=== PATIENT | male | born 1995 | race Caucasian/White ===

== ENCOUNTER 2017-10-24 09:46 | Emergency (ER) | payer OTHER, BC ==
[~2017-10-24] VITALS: Wt 90.7 kg
[~2017-10-24 09:46] MED LIST: AMOXICILLIN500 MG PO; CLARITIN10 MG PO; CLOTRIM ANTIFUNGAL1% TP; DOXYCYCLINE100 M3 PO; MOTRIN600 MG PO; MOTRIN800 MG PO; NKHM; PREDNISONE20 M1 PO; ROBITUSSIN DM120 ML PO; SINGULAIR10 MG PO; SUDAFED30 MG PO; TESSALON PERLE100 M1 PO; ZITHROMAX Z PA250 MG PO; ZITHROMAX250 MG PO
[2017-10-24 10:23] LABS: BASO % 0.4 % (0.0-1.0); EOS # 0.1 10*3/uL (0.0-0.4); EOS % 1.8 % (1.0-4.0); HEMATOCRIT 43.7 % (42.0-52.0); LYMPH # 2.6 10*3/uL (1.3-4.4); LYMPH % 34.5 % (27.0-41.0); MEAN CELL VOLUME 89.5 fl (80.0-94.0); MEAN CORPUSCULAR HGB 30.7 pg (27.0-31.0); MEAN CORPUSCULAR HGB CONC 34.3 g/dl (33.0-37.0); MEAN PLATELET VOLUME 10.7 fl (9.6-12.3); MONO # 0.4 10*3/uL (0.1-1.0); MONO % 5.8 % (3.0-9.0); NEUT # 4.3 10*3/uL (2.3-7.9); NEUT % 57.1 % (47.0-73.0); PLATELET COUNT AUTOMATED 238 10*3/uL (130-400); RED BLOOD COUNT 4.88 10*6/uL (4.50-5.90); RED CELL DISTRI WIDTH 12.3 % (0-14.5); WHITE BLOOD COUNT 7.6 10*3/uL (4.8-10.8)
[2017-10-24 10:44] LABS: BILIRUBIN NEGATIVE (NEGATIVE); BLOOD NEGATIVE (NEGATIVE); CLARITY SL CLOUDY (CLEAR); COLOR YELLOW (YELLOW); GLUCOSE NEGATIVE (NEGATIVE); KETONE NEGATIVE (NEGATIVE); LEUKO ESTERASE NEGATIVE (NEGATIVE); NITRITE NEGATIVE (NEGATIVE); PH 7.5 (5.0-9.0); SPECIFIC GRAVITY 1.015 (1.005-1.030); UROBILINOGEN 0.2 E.U./dl (0.2-1.0)
[2017-10-24 10:46] LABS: ALBUMIN 4.2 gm/dl (3.1-4.5); ALKALINE PHOSPHATASE 89 U/L (45-117); BUN 16 mg/dl (7-24); CHLORIDE 105 mmol/L (98-107); CREATININE 0.93 mg/dL (0.70-1.30); LIPASE 70 U/L (73-393); POTASSIUM 4.5 mmol/L (3.5-5.1); SGOT/AST 25 IU/L (3-35); SGPT/ALT 39 U/L (12-78); SODIUM 139 mmol/L (136-145); TOTAL PROTEIN 7.7 gm/dL (6.4-8.2)
[2017-10-24 11:21] LABS: BACTERIA 3+; EPITHELIAL CELLS 0-2; WBC 0-2 wbc/hpf (0-5)
[2017-10-24] MEDS ORDERED: ZOFRAN ODT4 MG SL (12:53)
[2017-10-24] MEDS ORDERED: MIRALAX POWDER17 G1 PO (12:53)
== END 2017-10-24 13:11 | disposition home or self-care (01) ==
LOC: ED 09:46
PROVIDERS: Nurse Practitioner Family
DX: K59.00 Constipation, unspecified (principal); R11.0 Nausea; Z79.899 Other long term (current) drug therapy; Z88.1 Allergy status to other antibiotic agents

== ENCOUNTER 2018-07-21 11:26 | Emergency (ER) | payer BC, OTHER ==
[~2018-07-21] VITALS: Ht 177.8 cm; Wt 88.5 kg
[~2018-07-21 11:26] MED LIST changes: +MIRALAX POWDER17 G1 PO; +ZOFRAN ODT4 MG SL
[2018-07-21] MEDS ORDERED: FLONASE ALLERG9.9 ML NAS (11:43)
[2018-07-21] MEDS ORDERED: PREDNISONE10 MG PO (11:43)
== END 2018-07-21 12:50 | disposition home or self-care (01) ==
LOC: ED 11:26
DX: B34.9 Viral infection, unspecified (principal); R03.0 Elevated blood-pressure reading, without diagnosis of hypertension; Z88.8 Allergy status to other drugs, medicaments and biological substances; Z79.899 Other long term (current) drug therapy

== ENCOUNTER 2018-08-26 16:19 | Emergency (ER) | payer BC, OTHER ==
[~2018-08-26] VITALS: Ht 177.8 cm; Wt 95.3 kg
[~2018-08-26 16:19] MED LIST changes: +FLONASE ALLERG9.9 ML NAS; +PREDNISONE10 MG PO
== END 2018-08-26 17:21 | disposition home or self-care (01) ==
LOC: ED 16:19
DX: J06.9 Acute upper respiratory infection, unspecified (principal); H61.22 Impacted cerumen, left ear; R11.10 Vomiting, unspecified; Z88.1 Allergy status to other antibiotic agents; Z88.8 Allergy status to other drugs, medicaments and biological substances; Z79.899 Other long term (current) drug therapy

== ENCOUNTER 2018-10-20 11:12 | Emergency (ER) | payer BC, OTHER ==
[~2018-10-20] VITALS: Ht 180.3 cm; Wt 86.2 kg
--- NOTE | ~2018-10-20 | EKG ---
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
[2018-10-20 12:03] LABS: BASO % 0.7 % (0.0-1.0); EOS # 0.3 10*3/uL (0.0-0.4); EOS % 5.4 % (1.0-4.0); HEMATOCRIT 43.8 % (42.0-52.0); LYMPH # 2.3 10*3/uL (1.3-4.4); LYMPH % 37.8 % (27.0-41.0); MEAN CORPUSCULAR HGB 31.5 pg (27.0-31.0); MEAN CORPUSCULAR HGB CONC 34.2 g/dl (33.0-37.0); MEAN PLATELET VOLUME 10.9 fl (9.6-12.3); MONO # 0.5 10*3/uL (0.1-1.0); MONO % 7.3 % (3.0-9.0); NEUT % 48.5 % (47.0-73.0); PLATELET COUNT AUTOMATED 238 10*3/uL (130-400); RED BLOOD COUNT 4.76 10*6/uL (4.50-5.90); RED CELL DISTRI WIDTH 12.2 % (0-14.5); WHITE BLOOD COUNT 6.1 10*3/uL (4.8-10.8)
[2018-10-20 12:20] LABS: ALBUMIN 3.8 gm/dl (3.1-4.5); ALKALINE PHOSPHATASE 79 U/L (45-117); BUN 17 mg/dl (7-24); CHLORIDE 108 mmol/L (98-107); CREATININE 0.96 mg/dL (0.70-1.30); POTASSIUM 4.1 mmol/L (3.5-5.1); SGOT/AST 21 IU/L (3-35); SGPT/ALT 39 U/L (12-78); SODIUM 141 mmol/L (136-145); TOTAL PROTEIN 7.3 gm/dL (6.4-8.2)
== END 2018-10-20 12:26 | disposition home or self-care (01) ==
LOC: ED 11:12
PROVIDERS: Emergency Medicine
DX: R55 Syncope and collapse (principal); Z88.1 Allergy status to other antibiotic agents; Z88.8 Allergy status to other drugs, medicaments and biological substances

== ENCOUNTER 2019-04-29 16:22 | Emergency (ER) | payer BC, OTHER ==
[~2019-04-29] VITALS: Ht 180.3 cm; Wt 90.7 kg
== END 2019-04-29 17:49 | disposition home or self-care (01) ==
LOC: ED 16:22
DX: S80.01XA Contusion of right knee, initial encounter (principal); Z88.1 Allergy status to other antibiotic agents; Z88.8 Allergy status to other drugs, medicaments and biological substances; W18.40XA Slipping, tripping and stumbling without falling, unspecified, initial encounter; Y93.89 Activity, other specified; Y92.89 Other specified places as the place of occurrence of the external cause; Y99.8 Other external cause status

== ENCOUNTER 2019-06-21 10:53 | Emergency (ER) | payer BC, OTHER ==
[~2019-06-21] VITALS: Ht 180.3 cm; Wt 90.7 kg
[2019-06-21] MEDS ORDERED: OMNICEF300 MG PO ×2 (12:21→12:46)
== END 2019-06-21 12:36 | disposition home or self-care (01) ==
LOC: ED 10:53
DX: J02.9 Acute pharyngitis, unspecified (principal); Z88.8 Allergy status to other drugs, medicaments and biological substances; Z88.1 Allergy status to other antibiotic agents

== ENCOUNTER 2020-01-11 18:35 | Emergency (ER) | payer BC, OTHER ==
[~2020-01-11] VITALS: Ht 180.3 cm; Wt 90.7 kg
[~2020-01-11 18:35] MED LIST changes: +OMNICEF300 MG PO
[2020-01-12] MEDS ORDERED: CEPHALEXIN500 M1 PO (19:00)
== END 2020-01-11 20:25 | disposition home or self-care (01) ==
LOC: ED 18:35
DX: S61.206A Unspecified open wound of right little finger without damage to nail, initial encounter (principal); Z88.8 Allergy status to other drugs, medicaments and biological substances; X58.XXXA Exposure to other specified factors, initial encounter; Y93.89 Activity, other specified; Y92.89 Other specified places as the place of occurrence of the external cause; Y99.8 Other external cause status

== ENCOUNTER 2020-02-16 19:45 | Emergency (ER) | payer BC, OTHER ==
[~2020-02-16] VITALS: Wt 90.7 kg
[~2020-02-16 19:45] MED LIST changes: +CEPHALEXIN500 M1 PO
[2020-02-17] MEDS ORDERED: IBUPROFEN600 MG PO (12:30)
== END 2020-02-16 23:14 | disposition home or self-care (01) ==
LOC: ED 19:45
DX: S76.012A Strain of muscle, fascia and tendon of left hip, initial encounter (principal); Z88.8 Allergy status to other drugs, medicaments and biological substances; X58.XXXA Exposure to other specified factors, initial encounter; Y93.89 Activity, other specified; Y92.89 Other specified places as the place of occurrence of the external cause; Y99.8 Other external cause status

== ENCOUNTER → 2020-05-26 | Outpatient (CLI) | payer BC, OTHER ==
[~2020-05-26] MED LIST changes: +IBUPROFEN600 MG PO
== END | disposition home or self-care (01) ==
LOC: COVID19 12:19
PROVIDERS: ATTEND Family Medicine
DX: U07.1 COVID-19 (principal)

== ENCOUNTER → 2021-04-28 | Outpatient (CLI) | payer BC, OTHER ==
[2021-04-28 15:13] LABS: HEMATOCRIT 41.3 % (42.0-52.0); MEAN CELL VOLUME 89.4 fl (80.0-94.0); MEAN CORPUSCULAR HGB CONC 34.6 g/dl (33.0-37.0); MEAN PLATELET VOLUME 10.5 fl (9.6-12.3); RED BLOOD COUNT 4.62 10*6/uL (4.50-5.90); RED CELL DISTRI WIDTH 11.7 % (0-14.5); WHITE BLOOD COUNT 6.7 10*3/uL (4.8-10.8)
[2021-04-28 15:28] LABS: ALKALINE PHOSPHATASE 82 U/L (45-117); BUN 15 mg/dl (7-24); CHLORIDE 109 mmol/L (98-107); CHOLESTEROL 155 mg/dL (<200); CREATININE 0.95 mg/dL (0.70-1.30); LDL CHOLESTEROL 82 mg/dL (9-159); SGOT/AST 20 IU/L (3-35); SGPT/ALT 29 U/L (12-78); SODIUM 141 mmol/L (136-145); TOTAL PROTEIN 7.5 gm/dL (6.4-8.2); TRIGLYCERIDES 87 mg/dl (<150)
== END | disposition home or self-care (01) ==
LOC: LAB 14:59
PROVIDERS: ATTEND Family Medicine
DX: Z00.00 Encounter for general adult medical examination without abnormal findings (principal)

== ENCOUNTER 2021-10-18 18:28 | Emergency (ER) | payer BC, OTHER ==
[~2021-10-18] VITALS: Wt 86.2 kg
== END 2021-10-18 21:28 | disposition left against medical advice (07) ==
LOC: ED 18:28
DX: R50.9 Fever, unspecified (principal); Z53.21 Procedure and treatment not carried out due to patient leaving prior to being seen by health care provider

== ENCOUNTER 2021-11-06 16:31 | Emergency (ER) | payer BC, OTHER ==
[2021-11-06 17:09] LABS: BASO % 0.5 % (0.0-1.0); EOS # 0.4 10*3/uL (0.0-0.4); HEMATOCRIT 42.5 % (42.0-52.0); LYMPH # 2.7 10*3/uL (1.3-4.4); LYMPH % 35.9 % (27.0-41.0); MEAN CORPUSCULAR HGB 31.3 pg (27.0-31.0); MEAN CORPUSCULAR HGB CONC 34.4 g/dl (33.0-37.0); MEAN PLATELET VOLUME 10.2 fl (9.6-12.3); MONO # 0.5 10*3/uL (0.1-1.0); MONO % 6.6 % (3.0-9.0); NEUT # 3.8 10*3/uL (2.3-7.9); NEUT % 50.9 % (47.0-73.0); PLATELET COUNT AUTOMATED 245 10*3/uL (130-400); RED BLOOD COUNT 4.67 10*6/uL (4.50-5.90); RED CELL DISTRI WIDTH 11.9 % (0-14.5); WHITE BLOOD COUNT 7.4 10*3/uL (4.8-10.8)
[2021-11-06 17:30] LABS: ALKALINE PHOSPHATASE 77 U/L (45-117); BUN 14 mg/dl (7-24); CHLORIDE 106 mmol/L (98-107); CREATININE 0.86 mg/dL (0.70-1.30); SGOT/AST 17 IU/L (3-35); SGPT/ALT 29 U/L (12-78); SODIUM 140 mmol/L (136-145)
== END 2021-11-06 18:05 | disposition home or self-care (01) ==
LOC: ED 16:31
PROVIDERS: Physician Assistant
DX: R53.83 Other fatigue (principal); J02.9 Acute pharyngitis, unspecified; Z88.1 Allergy status to other antibiotic agents; Z90.89 Acquired absence of other organs

== ENCOUNTER 2021-11-29 10:43 | Emergency (ER) | payer BC, OTHER ==
[~2021-11-29] VITALS: Wt 86.2 kg
[2021-11-29] MEDS ORDERED: TAMIFLU 75MG CA75 MG PO (12:17)
== END 2021-11-29 12:28 | disposition home or self-care (01) ==
LOC: ED 10:43
DX: J10.1 Influenza due to other identified influenza virus with other respiratory manifestations (principal); Z20.822 Contact with and (suspected) exposure to COVID-19; Z88.1 Allergy status to other antibiotic agents; Z90.89 Acquired absence of other organs

== ENCOUNTER → 2022-11-28 | Outpatient (CLI) | payer BC, OTHER ==
[~2022-11-28] MED LIST changes: +TAMIFLU 75MG CA75 MG PO
[2022-11-28 09:07] LABS: HEMATOCRIT 43.7 % (42.0-52.0); MEAN CELL VOLUME 89.9 fl (80.0-94.0); MEAN CORPUSCULAR HGB 31.1 pg (27.0-31.0); MEAN CORPUSCULAR HGB CONC 34.6 g/dl (33.0-37.0); RED BLOOD COUNT 4.86 10*6/uL (4.50-5.90); RED CELL DISTRI WIDTH 11.8 % (0-14.5); WHITE BLOOD COUNT 5.5 10*3/uL (4.8-10.8)
[2022-11-28 09:55] LABS: ALKALINE PHOSPHATASE 77 U/L (46-116); BUN 13 mg/dl (9-23); CHLORIDE 104 mmol/L (98-107); CHOLESTEROL 173 mg/dL (<200); LDL CHOLESTEROL 105 mg/dL (9-159); POTASSIUM 4.5 mmol/L (3.4-5.1); SGPT/ALT 20 U/L (10-49); TOTAL PROTEIN 6.9 gm/dL (6.0-8.0); TRIGLYCERIDES 49 mg/dl (<150)
[2022-11-28 09:56] LABS: VITAMIN D, 25-HYDROXY 42.7 ng/mL (30-100)
== END | disposition home or self-care (01) ==
LOC: LAB 08:45
PROVIDERS: ATTEND Family Medicine
DX: Z00.00 Encounter for general adult medical examination without abnormal findings (principal); E55.9 Vitamin D deficiency, unspecified; R55 Syncope and collapse; R51.9 Headache, unspecified; R53.83 Other fatigue

== ENCOUNTER → 2022-12-13 | Outpatient (CLI) | payer BC, OTHER ==
[2022-12-14 17:06] LABS: ANTI-SMOOTH MUSCLE ANTIBODY 6 Units (0-19)
== END | disposition home or self-care (01) ==
LOC: LAB 10:04
PROVIDERS: ATTEND Family Medicine
DX: E80.6 Other disorders of bilirubin metabolism (principal)

== ENCOUNTER → 2022-12-25 | Outpatient (CLI) | payer BC, OTHER | END | disposition home or self-care (01) | LOC: US 08:58 | PROVIDERS: ATTEND Family Medicine | DX: R10.11 Right upper quadrant pain (principal); E80.6 Other disorders of bilirubin metabolism ==